=== PATIENT | female | born 1980 | race Caucasian/White ===

== ENCOUNTER 2019-03-12 18:00 | Emergency (ER) | payer SELFPAY ==
[2019-03-12] MEDS ORDERED: LIDOCAINE 4% TRANSPARENT DRESSING 5 GM KIT TP ONE (18:58)
[2019-03-12] MEDS ORDERED: MIDAZOLAM 2 MG/2 ML INJ IM ONE (18:58)
[2019-03-12] MEDS ORDERED: LIDOCAINE 1%/EPINEPHRINE INJ 20 ML VIAL INJ ONE (18:59)
[2019-03-12] MEDS ORDERED: BUPROPION HCL 100 MG TABLET PO ONE (19:02)
--- NOTE | 2019-03-12 19:04 | ER Document Report ---
ED General - General Chief Complaint: Psych Problem Stated Complaint: PSYCH EVAL/WRIST LACERATION Time Seen by Provider: 03/12/19 18:32 Primary Care Provider: TEOFILO MONTANA MD [Primary Care Provider] - Follow up in 1 week Notes: Patient is a 38-year old female with a past medical history of depression and anxiety who presents after self inflicting a laceration to her left wrist just prior to arrival. Patient states that she has been off of her bupropion and alprazolam for approximately 6 weeks that she was unable to afford these medications. She states that since coming off these medications she has felt i ncreasingly depressed, anxious and has been struggling to cope. States today that she had an emotional breakdown and in a moment of severe emotional pain inflicted a wound on her left wrist intentionally to distract herself from her emotional discomfort. Patient stated "I thought I felt something physical I would not do feel so much emotional pain". The patient states that at no point was she trying to kill herself and is not suicidal nor has she been suicidal within the past 24 to 48 hours. She has a history of self-injurious behaviors in the past which have been well controlled when she has been on her medication. She did contact her mother who brought her here to the hospital. She does report a burning, stinging, constant discomfort to the left wrist where there was a laceration. Nothing improves or worsens the discomfort. In triage in the blood she did have an episode of syncope. TRAVEL OUTSIDE OF THE [place] IN LAST 30 DAYS: No - Related Data Allergies/Adverse Reactions: No Known Allergies Allergy (Verified 03/12/19 18:05) Past Medical History - General Information source: Patient - Social History Smoking Status: Never Smoker Frequency of alcohol use: None Drug Abuse: None Lives with: Family Family History: Reviewed & Not Pertinent Psychiatric Medical History: Reports: Hx Bipolar Disorder Review of Systems - Review of Systems Notes: Constitutional: Negative for fever. HENT: Negative for sore throat. Eyes: Negative for visual changes. Cardiovascular: Negative for chest pain. Respiratory: Negative for shortness of breath. Gastrointestinal: Negative for abdominal pain, vomiting or diarrhea. Genitourinary: Negative for dysuria. Musculoskeletal: Negative for back pain. Skin: Positive for left wrist laceration Neurological: Negative for headaches, weakness or numbness. 10 point ROS negative except as marked above and in HPI. Physical Exam - Vital signs Vitals: Resp 16 03/12/19 19:13 Interpretation: Normal Notes: PHYSICAL EXAMINATION: GENERAL: Well-appearing, well-nourished and in no acute distress. HEAD: Atraumatic, normocephalic. EYES: Pupils equal round and reactive to light, extraocular movements intact, sclera anicteric, conjunctiva are normal. ENT: nares patent, oropharynx clear without exudates. Moist mucous membranes. NECK: Normal range of motion, supple without lymphadenopathy LUNGS: Breath sounds clear to auscultation bilaterally and equal. No wheezes rales or rhonchi. HEART: Regular rate and rhythm without murmurs ABDOMEN: Soft, nontender, normoactive bowel sounds. No guarding, no rebound. No masses appreciated. EXTREMITIES: Normal range of motion, no pitting or edema. No cyanosis. Full wrist flexion extension on the left. RMU motor and sensory distribution is intact including against resistance on motor testing. Full flexion extension at the DIP, PIP and MCP of all digits of the left hand. NEUROLOGICAL: No focal neurological deficits. Moves all extremities spontaneously and on command. PSYCH: Anxious, somewhat tearful SKIN: Warm, Dry, normal turgor, 7 cm laceration over the left wrist with exposure of subcutaneous fat no active bleeding Course - Re-evaluation Re-evalutation: 03/12/19 19:01 Patient presents after self-inflicted 7 cm laceration on the left wrist. This area was cleaned, anesthetized and repaired without difficulty. Neurovascular intact. Full flexion and extension at the wrist. RMU motor and sensory distribution is intact including against resistance on motor testing capillary refill is less than 1 second in all digits of the left hand. Physical examination is otherwise unremarkable. The patient admits that she has a long- standing history of self-injurious behavior which she has not done in quite some time as she has been medicated on bupropion and alprazolam. The patient did self discontinue these medications 6 weeks ago and has had increasing depression over that period of time. States she had significant emotional stressors today and in the height of her stress inflicted a laceration to her left wrist to feel physical pain to distract from her emotional pain. She is very clear to state that this was not a suicide attempt. She immediately called her mother and was brought here to the emergency department. She currently denies any active versus passive suicidal ideation. Her family is at the bedside and supports her stance that she is not suicidal and does not need to remain in the emergency department. The family states that the patient has gotten this way in the past when she was off her medications and feel quite comfortable with the idea of discharge home as long as she is able to restart her medications. The patient has contracted for safety. I have offered that she stay here in the emergency department to speak to behavioral health but she has declined. At this point she does not meet IVC criteria as her intention of injury was not suicide, she actively denies suicidal ideation, her family supports the claim that she is not currently suicidal and is comfortable with taking her home and monitoring her closely at home and will also assist her in getting her medications. At this time will discharge with return precautions and follow-up recommendations. Verbal discharge instructions given a the bedside and opportunity for questions given. Medication warnings reviewed. Patient is in agreement with this plan and has verbalized understanding of return precautions and the need for primary care follow-up in the next 24-72 hours. - Vital Signs Vital signs: Temp Pulse Resp BP Pulse Ox 98.3 F 95 16 126/87 H 100 03/12/19 20:45 03/12/19 20:45 03/12/19 20:45 03/12/19 20:45 03/12/19 20:45 Procedures - Laceration/Wound Repair Left Wrist Wound length (cm): 7 Wound's Depth, Shape: Linear Laceration pre-procedure: Sterile PPE donned Anesthetic type: 1% Lidocaine w/epi Volume Anesthetic (mLs): 5 Wound explored: Clean Irrigated w/ Saline (mLs): 500 Wound Debrided: Minimal Wound Repaired With: Sutures Suture Size/Type: 4:0, Prolene Number of Sutures: 13 Layer Closure?: No Post-procedure wound care: Sterile dressing applied Post-procedure NV exam normal: Yes Complications: No Discharge - Discharge Clinical Impression: Self-injurious behavior Laceration of left wrist Qualifiers: Encounter type: initial encounter Qualified Code(s): S61.512A - Laceration without foreign body of left wrist, initial encounter Depression Qualifiers: Depression Type: unspecified Qualified Code(s): F32.9 - Major depressive disorder, single episode, unspecified Condition: Good Disposition: HOME, SELF-CARE Additional Instructions: Please return if you have thoughts of wanting to hurt yourself, hurt others, or have any other symptoms that are concerning to you. Please return to your primary doctor, the ED, or an urgent care in 7 days for suture removal. Return immediately if you develop spreading redness around the wound, pus from the wound, worsening pain, or a fever of >100.4. Keep the area clean and dry. Wash gently with soap and water twice daily and cover with antibiotic ointment. Prescriptions: Bupropion HCl [Bupropion Xl] 300 mg PO DAILY #60 [id number].er.[id number] Referrals: TEOFILO MONTANA MD [Primary Care Provider] - Follow up in 1 week
[2019-03-12 21:37] VITALS: BP 126/87
--- NOTE | 2019-03-13 08:45 | EKG REPORT ---
SEVERITY:- ABNORMAL ECG - SINUS RHYTHM NONSPECIFIC T ABNORMALITIES, INFERIOR LEADS : Confirmed by: Miles Romero MD 13-Mar-2019 08:44:23
== END 2019-03-12 20:50 | disposition home or self-care (01) ==
LOC: ER 18:00
DX: S61.512A Laceration without foreign body of left wrist, initial encounter (principal); F32.9 Major depressive disorder, single episode, unspecified; X78.9XXA Intentional self-harm by unspecified sharp object, initial encounter
CPT/HCPCS: 93005; 99284; 93010; 12002; J2250; J3490 ×2